=== PATIENT | female | born 1990 | race Caucasian/White ===

== ENCOUNTER 2017-02-24 01:04 | Emergency (ER) | payer BC ==
[~2017-02-24] VITALS: Ht 162.6 cm; Wt 68.0 kg
--- NOTE | 2017-02-24 01:07 | NUR ---
PT BIB BOYFRIEND VIA WC. PT STATES SHE DRANK HALF A BOTTLE OF TEQUILA AND FELL OFF THE 2ND STORY [place] AND HAS A LAC TO HER RIGHT THIGH, LEFT ELBOW, LEFT KNEE, DENIES LOC. PT AOX4 RR EVEN AND UNLABORED. NO SOB NOTED. NAD NOTED. NO NVD AT THIS TIME. PT NOT DIAPHORETIC. PT GOWNED AND PLACED ON MONITOR.
--- NOTE | 2017-02-24 01:08 | NUR ---
DR. ESPAÑA AT BEDSIDE FOR EVAL.
[2017-02-24] MEDS ORDERED: ONDANSETRON HCL/PF 4 MG/2 ML VIAL ONE ×2 (01:26→04:26)
[2017-02-24] MEDS ORDERED: HYDROMORPHONE 1 MG/1 ML DISP.SYRIN ONE ×2 (01:26→02:34)
[2017-02-24] MEDS ORDERED: IV NS 0.9% 1,000 ML ONE ×5 (01:27→08:25)
[2017-02-24] MEDS ORDERED: IV SET PRIMARY 1 EA INFUS.SET MC ONE ×3 (01:27→06:06)
[2017-02-24] MEDS ORDERED: IV SET PRIMARY PUMP SET 1 EA INFUS.SET MC ONE (01:34)
[2017-02-24] MEDS: HYDROMORPHONE 1 MG/1 ML DISP.SYRIN IV ONE ×2 (01:34→02:38)
[2017-02-24] MEDS: IV NS 0.9% 1,000 ML BAG IV ONE ×5 (01:34→08:33)
[2017-02-24] MEDS ORDERED: IV D5W 50 ML IV ONE (01:34)
[2017-02-24] MEDS ORDERED: CEFAZOLIN 1 GM ONE (01:34)
[2017-02-24] MEDS ORDERED: TDAP [DIPH/PERTUSSIS/TET] 0.5 ML VIAL IM ONE (01:35)
[2017-02-24] MEDS: ONDANSETRON HCL/PF 4 MG/2 ML VIAL IVP ONE (01:35)
[2017-02-24] MEDS: TDAP [DIPH/PERTUSSIS/TET] 0.5 ML VIAL IM ONE (01:44)
[2017-02-24] MEDS: CEFAZOLIN 1 GM in IV D5W 50 ML IV ONE (01:44)
--- NOTE | 2017-02-24 01:45 | NUR ---
PER DR. ESPAÑA NOT TO DRAW BLOOD CX.
[2017-02-24] MEDS: LIDOCAINE 1%-EPI 1:100,000 20 ML VIAL TP ONE (02:03)
[2017-02-24] MEDS: SODIUM BICARBONATE 5 ML VIAL TP ONE (02:04)
[2017-02-24] MEDS ORDERED: LIDOCAINE 1%-EPI 1:100,000 20 ML VIAL ONE (02:24)
--- NOTE | 2017-02-24 02:27 | NUR ---
Andriy santamaria in ED - 02/24/17 at [address] ESPAÑA AT [facility] FOR LAC REPAIR.
--- NOTE | 2017-02-24 02:42 | NUR ---
XRAY AT BEDSIDE
--- NOTE | 2017-02-24 03:37 | NUR ---
PT RETURNED FROM CT.
--- NOTE | 2017-02-24 04:15 | NUR ---
PER DR. TACO VILLAFANA TO DRINK WATER
[2017-02-24] MEDS: ONDANSETRON HCL/PF - ER 4 MG/2 ML VIAL IV ONE (04:32)
--- NOTE | 2017-02-24 04:33 | NUR ---
DR. ESPAÑA AT BEDSIDE FOR LAC REPAIR.
[2017-02-24 04:41] LABS: BASOPHILS % (AUTO) 0.5 % (0.0-2.0); EOSINOPHILS # (AUTO) 0.1 /CMM (0.0-0.7); EOSINOPHILS % (AUTO) 0.7 % (0.0-6.0); HEMATOCRIT 36 % (33-45); HEMOGLOBIN 12.3 g/dL (11.5-14.8); LYMPHOCYTES # (AUTO) 3.6 /CMM (0.8-4.8); LYMPHOCYTES % (AUTO) 40.5 % (20.0-44.0); MEAN CORPUSCULAR HEMOGLOBIN 30 PG (26.0-33.0); MEAN CORPUSCULAR HGB CONC 34 g/dl (31.0-36.0); MEAN CORPUSCULAR VOLUME 89 fL (82-100); MONOCYTES # (AUTO) 0.4 /CMM (0.1-1.30); MONOCYTES % (AUTO) 4.5 % (2.0-12.0); NEUTROPHILS # (AUTO) 4.8 /CMM (1.8-8.9); NEUTROPHILS % (AUTO) 53.8 % (43.0-81.0); PLATELET COUNT (AUTO) 261 /CMM (150-450); RDW COEFFICIENT OF VARIATION 12.9 (11.5-15.0); RED BLOOD CELL COUNT(AUTO) 4.05 MIL/uL (4.0-5.2); WHITE BLOOD COUNT (AUTO) 8.9 K/uL (4.3-11.0)
[2017-02-24 04:50] LABS: ALBUMIN 3.9 g/dL (3.4-5.0); BILIRUBIN,DIRECT 0.1 mg/dL (0.0-0.2); BILIRUBIN,TOTAL 0.5 mg/dL (0.2-1.0); CALCIUM, SERUM 8.8 mg/dL (8.5-10.1); CREATININE 0.9 mg/dL (0.6-1.3); POTASSIUM 3.2 mmol/L (3.5-5.1); TOTAL PROTEIN, SERUM 7.5 g/dL (6.4-8.2)
--- NOTE | 2017-02-24 05:07 | NUR ---
XRAY AT BEDSIDE
[2017-02-24 05:14] LABS: INR 0.86 (0.87-1.13); PROTHROMBIN TIME 9.1 SECS (9.5-12.7)
--- NOTE | 2017-02-24 05:45 | NUR ---
DR. ESPAÑA AT BEDSIDE FOR LEFT ELBOW LAC REPAIR.
--- NOTE | 2017-02-24 06:07 | NUR ---
DR. ESPAÑA AT BEDSIDE SPEAKING TO PT REGARDING RESULTS.
[2017-02-24] MEDS ORDERED: METOCLOPRAMIDE HCL 10 MG/2 ML VIAL ONE (06:11)
[2017-02-24] MEDS ORDERED: diphenhydrAMINE HCL 50 MG/ML VIAL ONE (06:12)
[2017-02-24] MEDS: diphenhydrAMINE HCL 50 MG/ML VIAL IV ONE (06:22)
[2017-02-24] MEDS: METOCLOPRAMIDE HCL 10 MG/2 ML VIAL IV ONE (06:22)
--- NOTE | 2017-02-24 06:31 | NUR ---
PT STATES " I FEEL BETTER AND NOT NAUSEOUS AT THIS TIME."
[2017-02-24] MEDS ORDERED: POTASSIUM CHLORIDE 20 MEQ TAB.PRT.SR PO ONE (06:37)
[2017-02-24] MEDS: POTASSIUM CHLORIDE 20 MEQ TAB.PRT.SR PO ONE (06:42)
--- NOTE | 2017-02-24 07:09 | NUR ---
REPORT GIVEN TO YOUSIF MCFADDEN FOR [facility].
--- NOTE | 2017-02-24 07:20 | NUR ---
RECEIVED PATIENT ON BED, AWAKE. NO ACUTE DISTRESS. VSS
[2017-02-24 08:48] LABS: HEMOGLOBIN 10.4 g/dL (11.5-14.8)
[2017-02-24] MEDS ORDERED: ONDANSETRON 4 MG TAB.RAPDIS ONE (09:32)
--- NOTE | 2017-02-24 09:39 | NUR ---
IV removed. Catheter intact and site benign. Pressure and 4x4 applied to site. No bleeding noted.
--- NOTE | 2017-02-24 09:39 | NUR ---
Patient discharged to home in stable condition. Written and verbal after care instructions given. Patient verbalizes understanding of instruction.
[2017-02-24 09:40] VITALS: BP 106/53
[2017-02-24] MEDS ORDERED: ONDANSETRON HCL 4 MG/5 ML SOLUTION PO ONE (10:00)
== END 2017-02-24 09:41 | disposition home or self-care (01) ==
LOC: ER 01:06
DX: S71.111A Laceration without foreign body, right thigh, initial encounter (principal); S51.812A Laceration without foreign body of left forearm, initial encounter; S80.212A Abrasion, left knee, initial encounter; F10.129 Alcohol abuse with intoxication, unspecified; W18.39XA Other fall on same level, initial encounter; Y93.9 Activity, unspecified; Y92.9 Unspecified place or not applicable; Y99.9 Unspecified external cause status
CPT/HCPCS: 36415; 72125-TC; 73080-TC; 73550-TC; 73564-TC; 80048-TC; 80076-TC; 84703-TC; 85025-TC; 85027-TC; 85730-TC; 86850-TC; 90715; A4606; A6253; A6402; J0690; J1170; J1200; J2405; J2765; J3490; J7030; J7060; Q0162; Z7610

== ENCOUNTER 2017-03-20 10:25 | Outpatient (CLI) | payer BC | END 2017-03-20 23:59 | disposition home or self-care (01) | LOC: WOU 10:25 | PROVIDERS: ATTEND Specialist | DX: S71.111A Laceration without foreign body, right thigh, initial encounter (principal); S51.012A Laceration without foreign body of left elbow, initial encounter; S81.012A Laceration without foreign body, left knee, initial encounter; W13.0XXA Fall from, out of or through balcony, initial encounter; Y92.89 Other specified places as the place of occurrence of the external cause; Z87.891 Personal history of nicotine dependence; F32.9 Major depressive disorder, single episode, unspecified; J45.909 Unspecified asthma, uncomplicated; Z79.899 Other long term (current) drug therapy | CPT/HCPCS: A6209; A6402 ==

== ENCOUNTER 2017-03-27 11:38 | Outpatient (CLI) | payer BC | END 2017-03-27 23:59 | disposition home or self-care (01) | LOC: WOU 11:38 | PROVIDERS: ATTEND Specialist | DX: S71.111A Laceration without foreign body, right thigh, initial encounter (principal); W13.0XXA Fall from, out of or through balcony, initial encounter; Z87.891 Personal history of nicotine dependence; F32.9 Major depressive disorder, single episode, unspecified; J45.909 Unspecified asthma, uncomplicated; Z79.899 Other long term (current) drug therapy; S51.012D Laceration without foreign body of left elbow, subsequent encounter; S81.012D Laceration without foreign body, left knee, subsequent encounter; W13.0XXD Fall from, out of or through balcony, subsequent encounter | CPT/HCPCS: 97597; A6209 ×2; A6402 ==

== ENCOUNTER 2017-04-03 09:20 | Outpatient (CLI) | payer BC | END 2017-04-03 23:59 | disposition home or self-care (01) | LOC: WOU 09:20 | PROVIDERS: ATTEND Specialist | DX: S71.111A Laceration without foreign body, right thigh, initial encounter (principal); S51.012A Laceration without foreign body of left elbow, initial encounter; W13.0XXA Fall from, out of or through balcony, initial encounter; Z87.891 Personal history of nicotine dependence; J45.909 Unspecified asthma, uncomplicated; F32.9 Major depressive disorder, single episode, unspecified | CPT/HCPCS: 11042; A6209 ×2 ==

== ENCOUNTER 2017-04-10 09:14 | Outpatient (CLI) | payer BC | END 2017-04-10 23:59 | disposition home or self-care (01) | LOC: WOU 09:14 | PROVIDERS: ATTEND Specialist | DX: S71.111A Laceration without foreign body, right thigh, initial encounter (principal); W13.0XXA Fall from, out of or through balcony, initial encounter; S51.012D Laceration without foreign body of left elbow, subsequent encounter; W13.0XXD Fall from, out of or through balcony, subsequent encounter; Z87.891 Personal history of nicotine dependence; F32.9 Major depressive disorder, single episode, unspecified; Z79.899 Other long term (current) drug therapy | CPT/HCPCS: 11042; A6402 ==

== ENCOUNTER 2017-04-17 09:15 | Outpatient (CLI) | payer BC | END 2017-04-17 23:59 | disposition home or self-care (01) | LOC: WOU 09:15 | PROVIDERS: ATTEND Specialist | DX: S71.111A Laceration without foreign body, right thigh, initial encounter (principal); W13.0XXA Fall from, out of or through balcony, initial encounter; S51.012D Laceration without foreign body of left elbow, subsequent encounter; W13.0XXD Fall from, out of or through balcony, subsequent encounter; Z87.891 Personal history of nicotine dependence | CPT/HCPCS: 11042; A6209; A6402 ==

== ENCOUNTER 2017-05-01 09:00 | Outpatient (CLI) | payer BC | END 2017-05-01 23:59 | disposition home or self-care (01) | LOC: WOU 09:00 | PROVIDERS: ATTEND Specialist | DX: S71.111A Laceration without foreign body, right thigh, initial encounter (principal); W13.0XXA Fall from, out of or through balcony, initial encounter | CPT/HCPCS: 17250; A6209 ×2; A6402 ==

== ENCOUNTER 2017-05-08 09:10 | Outpatient (CLI) | payer BC | END 2017-05-08 23:59 | disposition home or self-care (01) | LOC: WOU 09:10 | PROVIDERS: ATTEND Specialist | DX: S71.111A Laceration without foreign body, right thigh, initial encounter (principal); W13.0XXA Fall from, out of or through balcony, initial encounter; Z87.891 Personal history of nicotine dependence | CPT/HCPCS: 97597; A6209; A6402 ==

== ENCOUNTER 2017-05-22 09:17 | Outpatient (CLI) | payer BC | END 2017-05-22 23:59 | disposition home or self-care (01) | LOC: WOU 09:17 | PROVIDERS: ATTEND Specialist | DX: S71.111D Laceration without foreign body, right thigh, subsequent encounter (principal); S51.812D Laceration without foreign body of left forearm, subsequent encounter; W13.0XXD Fall from, out of or through balcony, subsequent encounter; J45.909 Unspecified asthma, uncomplicated; Z87.891 Personal history of nicotine dependence | CPT/HCPCS: 99214; A6207; A6402; G0463 ==